=== PATIENT | female | born 1960 | race American Indian/Alaskan Native ===

== ENCOUNTER 2016-11-01 09:01 | Emergency (ER) | payer MEDICARE ==
[2016-11-01 09:11] VITALS: BP 147/108
[2016-11-01] MEDS ORDERED: XYLOCAINE 2% INFILTRATI ONE (11:13)
--- NOTE | 2016-11-01 11:13 | Emergency Department Report ---
Upper Extremity - HPI Chief Complaint: Extremity Injury, Upper Stated Complaint: RT THUMB LACERATION Time Seen by Provider: 11/01/16 11:10 Upper Extremity: Right Thumb (laceration to right thumb while openign a can) Occurred When: Today Severity: moderate Symptoms: Yes Pain with Movement, Yes Laceration or Abrasion (2.5 inch laceration to right thumb), No Deformity, No Limited Range of Movement, No Numbness, No Weakness, No Swelling, No Bruising/Ecchymosis Other History: 56F PMH HTN p/w c/o laceration to right thumb. 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 Patient has visible 3 inch laceration to the outer aspect of right thumb. Straight, superficial, bleeding slightly, patient has it wrapped with gauze. Patient unaware of tetanus status denies any other injuries. Occurred last night at approximately 9:30 PM. ED Review of Systems ROS: Stated complaint: RT THUMB LACERATION Other details as noted in HPI Constitutional: denies: chills, fever Eyes: denies: eye pain, eye discharge, vision change ENT: denies: ear pain, throat pain Respiratory: denies: cough, shortness of breath, wheezing Cardiovascular: denies: chest pain, palpitations Endocrine: no symptoms reported Gastrointestinal: denies: abdominal pain, nausea, diarrhea Genitourinary: denies: urgency, dysuria, discharge Musculoskeletal: denies: back pain, joint swelling, arthralgia Skin: denies: rash, lesions Neurological: denies: headache, weakness, paresthesias Psychiatric: denies: anxiety, depression Hematological/Lymphatic: denies: easy bleeding, easy bruising ED Past Medical Hx - Past Medical History Previous Medical History?: Yes Hx Hypertension: Yes Hx Arthritis: Yes - Surgical History Past Surgical History?: Yes Additional Surgical History: Tubaligation, Right leg surgery - Social History Smoking Status: Current Every Day Smoker Substance Use Type: Alcohol, Prescribed - Medications Home Medications: Home Medications Medication Instructions Recorded Confirmed Last Taken Type Ibuprofen [Motrin] 600 mg PO Q8H PRN #20 tablet 11/01/16 Unknown Rx Sulfamethoxazole/Trimethoprim 1 each PO BID #10 tablet 11/01/16 Unknown Rx [Bactrim DS TAB] Upper Extremity Exam - Exam General: Vital signs noted. No distress. Alert and acting appropriately. Head and Torso: No HEENT Abnormality, No Neck Tenderness, No Chest/Lungs Abnormality, No Abdominal Tenderness, No Back Tenderness Shoulder Exam: Yes Normal Range of Motion in Shoulder, No Shoulder Tenderness, No Clavicle Tenderness, No Shoulder Deformity, No AC Joint Tenderness Arm Exam: No Arm/Humerus Tenderness, No Arm Deformity Elbow: No Elbow Tenderness, No Normal Range of Motion in Elbow, No Elbow Deformity Forearm: No Forearm Tenderness, No Forearm Deformity, No Pain with Pronation, No Pain with Supination Wrist: Yes Normal ROM in Wrist, No Wrist Tenderness, No Wrist Deformity, No Snuffbox Tenderness, No Pain with Axial Thumb Compression Hand: Yes Normal ROM in Digit(s), No Hand Tenderness, No Hand Deformity, No Digit Tenderness, No Digit(s) Deformity, No Tendon Dysfunction CMS Exam: Yes Broken Skin (patient has visible 2-3 inch laceration straight overlying right thumb between base of thumb and DIP joints.), Yes Normal Distal Pulses (distal capillary refill all fingers including thumb less than 1 second) , Yes Normal Capillary Refill (less than 1 second), Yes Normal Distal Sensation (distal thumb sensation and range of motion fully intact no snuffbox tenderness) Hand L/R Back: 1 - Straight laceration overlying skin here ED Course Vital Signs 11/01/16 09:06 Temperature 97.7 F Pulse Rate 92 H Respiratory 18 Rate Blood Pressure 147/108 O2 Sat by Pulse 100 Oximetry - Laceration /Wound Repair Right Distal Finger Wound Location: upper extremity (right thumb) Wound Length (cm): 5 Wound's Depth, Shape: superficial Wound Explored: clean Irrigated w/ Saline (ccs): 1,000 Betadine Prep?: Yes Anesthesia: 1% Lidocaine Volume Anesthetic (ccs): 3 Wound Debrided: minimal Wound Repaired With: sutures Suture Size/Type: 4:0, nylon Number of Sutures: 6 Progress: Good anesthesia achieved, 6 sutures placed, good closure achieved, procedure tolerated well minimal bleeding, dressed with sterile gauze and triple antibiotic ointment ED Medical Decision Making - Medical Decision Making A/P: Right thumb laceration 1-good closure achieved with 6 sutures. Distal sensation and range of motion intact, no snuffbox tenderness. Distal area wrapped with gauze and Chema wrap for support. 2-sutures to be removed in 10-12 days 3-short course Bactrim as patient stated food spilled onto laceration 4-tetanus updated today 5- patient advised on wound care Critical care attestation.: If time is entered above; I have spent that time in minutes in the direct care of this critically ill patient, excluding procedure time. ED Disposition Clinical Impression: Laceration of right thumb Qualifiers: Encounter type: initial encounter Damage to nail status: without damage Foreign body presence: without foreign body Qualified Code(s): S61.011A - Laceration without foreign body of right thumb without damage to nail, initial encounter Disposition: TO HOME OR SELFCARE Is pt being admited?: No Does the pt Need Aspirin: No Condition: Stable Instructions: Suture Care (ED), Laceration (ED), Acute Wound Care (ED) Additional Instructions: Sutures to be removed in 10-12 days Prescriptions: Ibuprofen [Motrin] 600 mg PO Q8H PRN #20 tablet PRN Reason: Pain Sulfamethoxazole/Trimethoprim [Bactrim DS TAB] 1 each PO BID #10 tablet Referrals: [facility] [Provider Group] - 3-5 Days Forms: Work/School Release Form(ED) Time of Disposition: 12:07
[2016-11-01] MEDS ORDERED: MOTRIN PO ONE (11:28)
[2016-11-01] MEDS ORDERED: BOOSTRIX IM ONE (11:28)
[2016-11-01] MEDS ORDERED: TRIPLE ANTIBIOTIC TP ONE (11:29)
== END 2016-11-01 12:11 | disposition home or self-care (01) ==
LOC: ED 09:01
DX: S61.011A Laceration without foreign body of right thumb without damage to nail, initial encounter (principal); W26.8XXA Contact with other sharp object(s), not elsewhere classified, initial encounter; Y93.89 Activity, other specified; Y92.89 Other specified places as the place of occurrence of the external cause; Y99.8 Other external cause status; I10 Essential (primary) hypertension; M19.90 Unspecified osteoarthritis, unspecified site; Z98.51 Tubal ligation status; F17.210 Nicotine dependence, cigarettes, uncomplicated
CPT/HCPCS: 90471; 90715; 96372; 99282; A6250

== ENCOUNTER 2021-06-28 16:57 | Emergency (ER) | payer MEDICARE ==
[2021-06-28 17:14] VITALS: BP 123/81
== END 2021-06-28 23:02 | disposition left against medical advice (07) ==
LOC: ED 16:57
DX: M79.602 Pain in left arm (principal); Z53.21 Procedure and treatment not carried out due to patient leaving prior to being seen by health care provider